=== PATIENT | male | born 2000 | race Two or more races ===

== ENCOUNTER → 2023-01-22 10:41 | Outpatient (BNVA) | payer SELFPAY | PROVIDERS: Visit Provider Physician Assistant Medical | DX: Z02.79 Encounter for issue of other medical certificate (principal) ==

== ENCOUNTER 2023-09-11 14:45 | Outpatient (REF) | payer OTHER, SELFPAY ==
[2023-09-11 16:18] LABS: MANUAL DIFF FLAG NO
[2023-09-11 16:22] LABS: Basophils Absolute Auto 0.1 X10*3/uL (0.0-0.2); Basophils Percent Auto 0.7 % (0-2); Eosinophils Absolute Auto 0.1 X10*3/uL (0.0-0.4); Eosinophils Percent Auto 1.7 % (0-4); Hematocrit 47.7 % (42.0-52.0); Hemoglobin 16.3 g/dl (14.0-18.0); Imm Gran Abs Auto 0.02 X10*3/uL (0.00-0.03); Imm Gran Pct Auto 0.3 % (0.0-0.4); Lymphocytes Absolute Auto 2.1 X10*3/uL (1.2-4.9); Lymphocytes Percent Auto 29.4 % (20-40); Mean Corpuscular HGB Conc 34.2 g/dl (31.0-36.0); Mean Corpuscular Volume 84.7 fL (80.0-98.0); Mean Platelet Volume 10.2 fL (9.4-12.4); Monocytes Absolute Auto 0.6 X10*3/uL (0.1-1.2); Monocytes Percent Auto 8.2 % (2-11); Neutrophils Absolute Auto 4.3 x10*3/uL (2.0-8.3); Neutrophils Percent Auto 59.7 % (45-73); Platelet Count 316 X10*3/uL (160-400); Red Blood Count 5.63 X10*6/uL (4.60-5.80); Red Cell Distribution Width 12.4 % (11.0-16.0); White Blood Count 7.2 X10*3/uL (4.8-10.8)
[2023-09-11 16:40] LABS: Alanine Aminotransferase 49 U/L (0-40); Albumin Level 4.7 g/dL (3.5-5.0); Alkaline Phosphatase 69 U/L (39-117); Anion Gap 11 (12-20); Aspartate Amino Transferase 25 U/L (5-37); Bilirubin Total 1.1 mg/dL (0.0-1.0); Blood Urea Nitrogen 12 mg/dL (9-16); Calcium 10.2 mg/dL (8.4-10.2); Carbon Dioxide 27 mmol/L (22-29); Chloride 104 mmol/L (96-108); Cholesterol 190 mg/dL (<200); Estimated Glomerular Filt Rate > 60; Glucose Random 81 mg/dL (60-115); HDL Cholesterol 40 mg/dL (>40); LDL Cholesterol Calculated 125 mg/dL (<100); Potassium 3.9 mmol/L (3.3-5.1); Sodium 138 mmol/L (135-145); Total Protein 8.2 g/dL (6.5-8.0); Triglycerides 126 mg/dL (<150)
[2023-09-13 04:34] LABS: Syphilis Screen Nonreactive (Nonreactive)
[2023-09-13 05:05] LABS: HBS Num1 18.63 mIU/mL (0-7.99); HBc Num1 0.08 S/CO (0.00-0.79); HBsAGNum1 0.29 S/CO (0.00-0.99); HIV AB/AG Nonreactive (Nonreactive); HIV Num 1 0.05 S/CO (0.00-0.99); Hepatitis B Core Antibody Nonreactive (Nonreactive); Hepatitis B Surface Antigen Negative (Negative); ~HepC Num1 0.14 S/CO (0.00-0.79); ~Hepatitis B Surface Antibody REACTIVE (Nonreactive); ~Hepatitis C Antibody Nonreactive (Nonreactive)
== END 2023-09-11 14:46 | disposition home or self-care (01) ==
LOC: HO.HHCL 14:45
PROVIDERS: Visit Provider Nurse Practitioner Primary Care
DX: Z00.00 Encounter for general adult medical examination without abnormal findings (principal); Z20.2 Contact with and (suspected) exposure to infections with a predominantly sexual mode of transmission
CPT/HCPCS: 36415; 80053; 80061; 85025; 86704; 86706; 86780; 86803; 87340; 87389

== ENCOUNTER 2023-09-11 21:50 | Emergency (ER) | payer OTHER, SELFPAY ==
--- NOTE | ~2023-09-11 | XR_ITS ---
EXAMINATION: XR CHEST CLINICAL INFORMATION: Aspiration. COMPARISON: None available. TECHNIQUE: 2 views of the chest were obtained. FINDINGS: Normal appearance of the cardiomediastinal silhouette. No focal airspace opacities, pleural effusion or pneumothorax. No acute osseous findings. Visualized upper abdomen is within normal limits. XR/XR chest 2V IMPRESSION: No acute cardiopulmonary findings.
[2023-09-11 22:37] VITALS: BP 116/65; PULSE 78; RESP 16; TEMP 36.6; O2SAT 97; BMI 29.9
[2023-09-11 23:28] LABS: MANUAL DIFF FLAG NO
[2023-09-11 23:32] LABS: Basophils Percent Auto 0.5 % (0-2); Eosinophils Absolute Auto 0.2 X10*3/uL (0.0-0.4); Eosinophils Percent Auto 2.3 % (0-4); Hematocrit 44.3 % (42.0-52.0); Hemoglobin 15.3 g/dl (14.0-18.0); Imm Gran Abs Auto 0.01 X10*3/uL (0.00-0.03); Imm Gran Pct Auto 0.1 % (0.0-0.4); Lymphocytes Absolute Auto 2.6 X10*3/uL (1.2-4.9); Lymphocytes Percent Auto 31.9 % (20-40); Mean Corpuscular HGB Conc 34.5 g/dl (31.0-36.0); Mean Corpuscular Hemoglobin 28.9 pg (27.0-33.0); Mean Corpuscular Volume 83.6 fL (80.0-98.0); Mean Platelet Volume 9.5 fL (9.4-12.4); Monocytes Absolute Auto 0.7 X10*3/uL (0.1-1.2); Monocytes Percent Auto 8.3 % (2-11); Neutrophils Absolute Auto 4.6 x10*3/uL (2.0-8.3); Neutrophils Percent Auto 56.9 % (45-73); Platelet Count 280 X10*3/uL (160-400); Red Cell Distribution Width 12.4 % (11.0-16.0)
[2023-09-11 23:39] LABS: INTERNATIONAL NORM RATIO 0.9 (0.9-1.1); Prothrombin Time 11.4 SEC (11.1-13.3)
[2023-09-11 23:51] LABS: Anion Gap 15 (12-20); Blood Urea Nitrogen 13 mg/dL (9-16); Calcium 10.2 mg/dL (8.4-10.2); Carbon Dioxide 24 mmol/L (22-29); Chloride 106 mmol/L (96-108); Creatinine Clr Calc Pharmacy 146.4; Estimated Glomerular Filt Rate > 60; Glucose Random 87 mg/dL (60-115); Potassium 3.7 mmol/L (3.3-5.1); Sodium 141 mmol/L (135-145)
--- NOTE | 2023-09-12 01:15 | ED_ITS ---
[facility] - General Adult General Chief complaint: General Medical Stated complaint: Inhaled rat poison spray at work, vomiting Time Seen by Provider: 09/12/23 00:48 Source: patient Mode of arrival: ambulatory History of Present Illness HPI narrative: This is a 22-year-old male without significant past medical history, patient denies any smoking history, does not inhale we would and states that today he was helping to spray right poison inside of a business at approximately 20:30 and went into the room without the use of any mask or respirator and experienced 2 episodes of vomiting and describes some mild nasal discomfort initially but at this time he denies any further symptoms. Patient denies any hallucinations or coughing. Related Data Allergies Allergy/AdvReac Type Severity Reaction Status Date / Time No Known Allergies Allergy Verified 09/11/23 22:37 Review of Systems 2 Review of Systems: Pertinent positives and negatives as stated in [facility] Past Medical History Source: nursing notes reviewed Onset Date is defined in the Problem List Problems that require an onset date and time if occurred within 24 hrs of arrival to the ED Aortic Dissection and Rupture; Neurologic impairment; Cardiopulmonary Arrest; Endotracheal Intubation; Insertion or Replacement of Mechanical Circulatory Assist Device Social History Social History Advance Directives: No Advance Directives Information Provided: Yes Physical Exam ED Vital Signs: Vital Signs - 24 hr 09/11/23 22:37 Temperature 97.9 F Pulse Rate 78 Respiratory Rate 16 Blood Pressure 116/65 Pulse Oximetry 97 Oxygen Delivery Method Room Air BMI result Body Mass Index 29.9 VITAL SIGNS: Reviewed. GENERAL: Well developed, well nourished, in no acute distress. HEAD: Normocephalic/atraumatic EYES: PERRLA, EOMI EARS: Ext canals without abnormality NOSE: Nares patent bilateral OROPHARYNX: no oral lesions noted, posterior pharynx clear and non-erythematous without noted tonsillar enlargement/erythema/exudates NECK: Supple, no adenopathy LUNGS: No stridor, Normal breath sounds. No adventitious sounds or accessory muscle use. SpO2<97> CARDIOVASCULAR: Regular rate and rhythm without noted murmurs ABDOMEN: Soft, non-tender, non-distended with bowel sounds. MUSCULOSKELETAL: No tenderness, deformities, or effusions noted on gross inspection. EXTREMITIES: No cyanosis, clubbing or edema. SKIN: Inspection of the skin reveals no rashes NEUROLOGIC: Alert and oriented x 4. Strength and sensation to light touch were grossly intact x 4. Medical Decision Making Medical Decision Making [facility] Narrative: 22-year-old male with history and clinical presentation of noxious inhalation of rat poison. No immediate evidence of pneumothorax or pulmonary edema at the time of my interview patient had no further symptoms. I reviewed all investigations and hematologic indices are grossly within normal limits and there are no noted derangements. Coagulation studies are within normal limits. Chemistry indices are grossly within normal limits without evidence of TIMMY or electrolyte derangements. Chest x-ray without evidence of infiltrates or venous congestion and otherwise my interpretation is in agreement with radiology's impression. Differential Diagnosis Differential Diagnoses: The differential diagnosis associated with the presentation includes Please see the discussion above Admission/Observation Consideration of admission/observation: Escalation of care including admission/observation considered Please see the discussion above Lab Data [facility] Lab Attestation statement: I reviewed the patient's lab results. Please see the discussion above 09/11/23 23:25 09/11/23 23:25 Labs: Lab Results 09/11/23 Range/Units 23:25 WBC 8.0 (4.8-10.8) X10*3/uL RBC 5.30 (4.60-5.80) X10*6/uL Hgb 15.3 (14.0-18.0) g/dl Hct 44.3 (42.0-52.0) % MCV 83.6 (80.0-98.0) fL MCH 28.9 (27.0-33.0) pg MCHC 34.5 (31.0-36.0) g/dl RDW 12.4 (11.0-16.0) % Plt Count 280 (160-400) X10*3/uL MPV 9.5 (9.4-12.4) fL Immature Gran % (Auto) 0.1 (0.0-0.4) % Neut % (Auto) 56.9 (45-73) % Lymph % (Auto) 31.9 (20-40) % [place] % (Auto) 8.3 (2-11) % Eos % (Auto) 2.3 (0-4) % Baso % (Auto) 0.5 (0-2) % Lymph # (Auto) 2.6 (1.2-4.9) X10*3/uL [place] # (Auto) 0.7 (0.1-1.2) X10*3/uL Eos # (Auto) 0.2 (0.0-0.4) X10*3/uL Baso # (Auto) 0.0 (0.0-0.2) X10*3/uL Abs Immat Gran (auto) 0.01 (0.00-0.03) X10*3/uL Absolute Neuts (auto) 4.6 (2.0-8.3) x10*3/uL Absolute Nucleated RBC 0.000 (0.0-0.012) X10*3/uL Nucleated RBC % (auto) 0.0 (0.0-0.2) /100WBC PT 11.4 (11.1-13.3) SEC INR 0.9 (0.9-1.1) Sodium 141 (135-145) mmol/L Potassium 3.7 (3.3-5.1) mmol/L Chloride 106 (96-108) mmol/L Carbon Dioxide 24 (22-29) mmol/L Anion Gap 15 (12-20) BUN 13 (9-16) mg/dL Creatinine 0.87 (0.5-1.4) mg/dL Estim Creat Clear Calc 146.4 Estimated GFR > 60 Random Glucose 87 (60-115) mg/dL Calcium 10.2 (8.4-10.2) mg/dL Radiology Impression Discussion of test interpretation with radiology: I have reviewed the radiologist's reading. Radiologist Impression: Please see the discussion above External Record Review External record reviewed: Outpatient record and Prior outpatient labs Discharge Plan Discharge Clinical Impression: Inhalation injury Patient Disposition: Home, Self-Care Instructions: Smoke Inhalation (ED) Additional Instructions: The closest I could find is smoke inhalation for information. Bottom line is if you have any worsening of shortness of breath please return to the emergency room
--- NOTE | 2023-09-12 01:40 | PC.NURSE ---
pt left prior to formal discharge. unable to obtain final set of vs.
== END 2023-09-12 02:03 | disposition home or self-care (01) ==
PROVIDERS: Emergency Medicine; Emergency Provider Student in an Organized Health Care Education/Training Program
DX: Z04.2 Encounter for examination and observation following work accident (principal); T60.4X1A Toxic effect of rodenticides, accidental (unintentional), initial encounter; R11.10 Vomiting, unspecified; J34.89 Other specified disorders of nose and nasal sinuses; Y92.9 Unspecified place or not applicable
CPT/HCPCS: 36415; 71046; 80048; 85025; 85610; 99283; 99284

== ENCOUNTER 2023-09-14 11:18 | Outpatient (REF) | payer OTHER, SELFPAY | END 2023-09-14 11:19 | disposition home or self-care (01) | LOC: HO.HHCLNP 11:18 | PROVIDERS: Visit Provider Nurse Practitioner Primary Care | DX: R12 Heartburn (principal) | CPT/HCPCS: 87338 ==

== ENCOUNTER 2023-09-26 22:20 | Emergency (ER) | payer OTHER, SELFPAY ==
--- NOTE | ~2023-09-26 | CT_ITS ---
EXAMINATION: CT HEAD WITHOUT CONTRAST CLINICAL INFORMATION: Altered mental status COMPARISON: None available. TECHNIQUE: Contiguous axial imaging was performed from the skull base to vertex without intravenous administration of contrast. This CT examination was performed using dose optimization techniques as appropriate, variously including the following: *Automated exposure control *Adjustment of mA and/or kV according to patient size (this includes techniques or standardized protocols for targeted exams where dose is matched to indication/reason for exam; i.e. extremities or head) *Use of iterative reconstruction technique DLP: 1759 mGy-cm FINDINGS: There is no evidence of acute intracranial hemorrhage or territorial infarction. No abnormal mass-effect or midline shift is seen. Luis to white matter differentiation is well preserved. No extra-axial fluid collections are identified. The ventricles are normal in size. There is suspected cavum veli interpositi, with enlarged CSF density space between the atria of the lateral ventricles. The osseous structures and soft tissues are normal. The mastoid air cells and visualized portions of the paranasal sinuses are well-aerated. CT/CT head/brain wo IV con IMPRESSION: No acute intracranial pathology.
--- NOTE | ~2023-09-26 | XR_ITS ---
EXAMINATION: XR CHEST CLINICAL INFORMATION: Chest pain COMPARISON: 09/11/2023 TECHNIQUE: Frontal view of the chest was obtained. FINDINGS: The lungs are hypoinflated which limits evaluation. No focal consolidation is seen. No evidence of pneumothorax, pleural effusion, or pulmonary edema. Cardiac silhouette appears mildly prominent and may be accentuated by low lung volumes. No acute osseous findings are seen. XR/XR chest 1V IMPRESSION: Low lung volumes without acute findings.
--- NOTE | 2023-09-26 22:26 | ED_ITS ---
HPI - Overdose General Chief Complaint: Overdose Stated Complaint: Overdose on drugs and alc. Time Seen by Provider: 09/26/23 22:22 Source: EMS Mode of arrival: EMS Limitations: other History of Present Illness HPI Narrative: patient comes to the emergency room for an overdose. According to EMS, the patient's family/friends called 911 because he was unresponsive. According to bystanders, patient was celebrating his birthday which is tomorrow. Seems that patient was drinking alcohol. According to bystanders he was not using any drugs. However, when EMS arrived, patient received 4 mg intranasal of Narcan and responded well. Additionally, patient needed 2 mg IV. On arrival to the ED, patient is awake and alert, unwilling to talk Related Data Allergies Allergy/AdvReac Type Severity Reaction Status Date / Time No Known Allergies Allergy Verified 09/26/23 23:08 Review of Systems 2 Review of Systems: Yes Unobtainable due to mental condition and Other PMFSH Past Medical History Medical History Overdose Polysubstance abuse Social History Social History (System 09/14/23 @ 15:10 by Mesha Javier) Advance Directives: No Advance Directives Information Provided: No Physical Exam 2 Vital Signs: Vital Signs: Last Vital Signs Temp 97.6 F 09/27/23 01:35 Pulse 84 09/27/23 01:35 Resp 16 09/27/23 01:35 BP 122/65 09/27/23 01:35 Pulse Ox 99 09/27/23 01:35 O2 Del Method Room Air 09/27/23 01:35 BMI result Body Mass Index 29.4 Const: Other: Appearance: Alert. unwilling to talk, No acute distress. Eyes: Pupils equal, round and reactive to light. ENT: Pharynx normal. Neck: Normal inspection. Neck supple. No lymph nodes noted. No crepitus CVS: Normal heart rate and rhythm. Pulses normal. Normal S1 and S2 Respiratory: No respiratory distress. Breath sounds normal. No Wheezing. No rales Abdomen: Soft and nontender. No rigidity. No distention. Skin: Skin warm and dry. Normal skin color. Normal skin turgor. Extremities: No lower extremity edema. No Lacerations. No Rash Neuro: Moving all extremities. No slurred speech. CN 2 through 12 grossly intact Psych: calm, cooperative, unwilling to talk Course Course Course Narrative: - all of patient's labs pending - when patient becomes more sober, we will reassess for SI HI Medications Administered Discontinued Medications Generic Name Dose Route Start Last Admin Trade Name Sunita PRN Reason Stop Dose Admin Sodium Chloride 1,000 mls @ 999 mls/hr 09/27/23 00:31 09/27/23 00:47 Ns IVCONT 09/27/23 01:31 999 mls/hr .Q1H1M ONE Administration Medical Decision Making Medical Decision Making [facility] Narrative: -my interpretation of labs: Normal hematology, normal chemistry, lactic acid 2.9 likely secondary to alcohol intoxication, alcohol level 161, no drugs in urine toxicology. -my interpretation of head CT: No intracranial bleed -patient's at bedside, patient's states that the patient was drinking a lot of alcohol, started vomiting and then passed out. -it is likely the patient had vasovagal syncope versus secondary to alcohol intoxication -patient is not short of breath, not tachycardic, no risks for PE, wells PE criteria score is 0 for this patient -troponin 2. Pending at 02:30 -I discussed the patient with my colleague Dr. Del Rosario Differential Diagnosis Differential Diagnoses: The differential diagnosis associated with the presentation includes (Alcohol intoxication, drug overdose, ACS) Admission/Observation Consideration of admission/observation: Escalation of care including admission/observation considered (Given patient's presentation, admission was considered on arrival) Lab Data [facility] Lab Attestation statement: I reviewed the patient's lab results. 09/26/23 22:29 09/26/23 23:31 Labs: Lab Results 09/26/23 09/26/23 09/26/23 Range/Units 22:29 23:14 23:31 WBC 7.9 (4.8-10.8) X10*3/uL RBC 5.32 (4.60-5.80) X10*6/uL Hgb 15.8 (14.0-18.0) g/dl Hct 44.2 (42.0-52.0) % MCV 83.1 (80.0-98.0) fL MCH 29.7 (27.0-33.0) pg MCHC 35.7 (31.0-36.0) g/dl RDW 12.1 (11.0-16.0) % Plt Count 275 (160-400) X10*3/uL MPV 9.4 (9.4-12.4) fL Immature Gran % (Auto) 0.4 (0.0-0.4) % Neut % (Auto) 65.0 (45-73) % Lymph % (Auto) 28.9 (20-40) % [place] % (Auto) 4.3 (2-11) % Eos % (Auto) 0.9 (0-4) % Baso % (Auto) 0.5 (0-2) % Lymph # (Auto) 2.3 (1.2-4.9) X10*3/uL [place] # (Auto) 0.3 (0.1-1.2) X10*3/uL Eos # (Auto) 0.1 (0.0-0.4) X10*3/uL Baso # (Auto) 0.0 (0.0-0.2) X10*3/uL Abs Immat Gran (auto) 0.03 (0.00-0.03) X10*3/uL Absolute Neuts (auto) 5.1 (2.0-8.3) x10*3/uL Absolute Nucleated RBC 0.000 (0.0-0.012) X10*3/uL Nucleated RBC % (auto) 0.0 (0.0-0.2) /100WBC Sodium 143 (135-145) mmol/L Potassium 3.7 (3.3-5.1) mmol/L Chloride 107 (96-108) mmol/L Carbon Dioxide 23 (22-29) mmol/L Anion Gap 17 (12-20) BUN 10 (9-16) mg/dL Creatinine 0.98 (0.5-1.4) mg/dL Estim Creat Clear Calc 133.1 Estimated GFR > 60 POC Glucose 115 (60-115) mg/dL Random Glucose 109 (60-115) mg/dL Lactic Acid 2.9 H* (0.5-2.0) mmol/L Calcium 9.2 D (8.4-10.2) mg/dL Total Bilirubin 0.6 (0.0-1.0) mg/dL Direct Bilirubin 0.2 (0.0-0.5) mg/dL AST 22 (5-37) U/L ALT 26 (0-40) U/L Alkaline Phosphatase 64 (39-117) U/L Troponin I High Sens < 2.7 < 2.7 (<3.5-35.0) ng/L Total Protein 8.3 H (6.5-8.0) g/dL Albumin 4.7 (3.5-5.0) g/dL Urine Opiates Screen Not Detected (Not Detect) Urine Fentanyl Screen Not Detected (Not Detect) Ur Barbiturates Screen Not Detected (Not Detect) Ur Phencyclidine Scrn Not Detected (Not Detect) Ur Amphetamines Screen Not Detected (Not Detect) U Benzodiazepines Scrn Not Detected (Not Detect) Urine Cocaine Screen Not Detected (Not Detect) U Marijuana (THC) Screen Not Detected (Not Detect) Ethyl Alcohol 161 mg/dL Independent Interpretation I performed an independent interpretation of an: CT Scan Radiology Impression Discussion of test interpretation with radiology: I have reviewed the radiologist's reading. Radiologist Impression: There is no evidence of acute intracranial hemorrhage or territorial infarction. No abnormal mass-effect or midline shift is seen. Luis to white matter differentiation is well preserved. No extra-axial fluid collections are identified. The ventricles are normal in size. There is suspected cavum veli interpositi, with enlarged CSF density space between the atria of the lateral ventricles. The osseous structures and soft tissues are normal. The mastoid air cells and visualized portions of the paranasal sinuses are well-aerated. CT/CT head/brain wo IV con IMPRESSION: No acute intracranial pathology. Discharge Plan Discharge Clinical Impression: Alcohol intoxication Patient Disposition: Still a Patient
--- NOTE | 2023-09-26 22:27 | ECG_ITS ---
Test Reason : overdose Blood Pressure : / mmHG Vent. Rate : 076 BPM Atrial Rate : 076 BPM P-R Int : 160 ms QRS Dur : 100 ms QT Int : 388 ms P-R-T Axes : 005 042 013 degrees QTc Int : 436 ms Normal sinus rhythm Normal ECG No previous ECGs available Referred By: Estelita Muro Electronically Signed By:Scout Roca
[2023-09-26 22:40] LABS: MANUAL DIFF FLAG NO
[2023-09-26 22:44] LABS: Basophils Percent Auto 0.5 % (0-2); Eosinophils Absolute Auto 0.1 X10*3/uL (0.0-0.4); Eosinophils Percent Auto 0.9 % (0-4); Hematocrit 44.2 % (42.0-52.0); Hemoglobin 15.8 g/dl (14.0-18.0); Imm Gran Abs Auto 0.03 X10*3/uL (0.00-0.03); Imm Gran Pct Auto 0.4 % (0.0-0.4); Lymphocytes Absolute Auto 2.3 X10*3/uL (1.2-4.9); Lymphocytes Percent Auto 28.9 % (20-40); Mean Corpuscular HGB Conc 35.7 g/dl (31.0-36.0); Mean Corpuscular Hemoglobin 29.7 pg (27.0-33.0); Mean Corpuscular Volume 83.1 fL (80.0-98.0); Mean Platelet Volume 9.4 fL (9.4-12.4); Monocytes Absolute Auto 0.3 X10*3/uL (0.1-1.2); Monocytes Percent Auto 4.3 % (2-11); Neutrophils Absolute Auto 5.1 x10*3/uL (2.0-8.3); Platelet Count 275 X10*3/uL (160-400); Red Blood Count 5.32 X10*6/uL (4.60-5.80); Red Cell Distribution Width 12.1 % (11.0-16.0); White Blood Count 7.9 X10*3/uL (4.8-10.8)
[2023-09-26 22:58] LABS: Alanine Aminotransferase 26 U/L (0-40); Albumin Level 4.7 g/dL (3.5-5.0); Alkaline Phosphatase 64 U/L (39-117); Aspartate Amino Transferase 22 U/L (5-37); Bilirubin Direct 0.2 mg/dL (0.0-0.5); Bilirubin Total 0.6 mg/dL (0.0-1.0); Ethanol 161 mg/dL; Total Protein 8.3 g/dL (6.5-8.0)
[2023-09-26 23:06] LABS: Troponin-I High Sensitivity < 2.7 ng/L (<3.5-35.0)
[2023-09-26 23:08] VITALS: BP 104/62; BP 143/77; PULSE 74; PULSE 75; RESP 18; TEMP 36.6; O2SAT 100; BMI 29.4
[2023-09-26 23:16] VITALS: BP 134/90; PULSE 81; RESP 20; TEMP 36.4; O2SAT 90
[2023-09-26 23:37] LABS: Glucose, Whole Blood 115 mg/dL (60-115)
[2023-09-26 23:43] VITALS: BP 143/77; PULSE 72; PULSE 75; RESP 17; TEMP 36.6; O2SAT 100; BMI 29.4
[2023-09-26 23:50] LABS: Amphetamine Screen Urine Not Detected (Not Detect); Barbiturates, Urine Not Detected (Not Detect); Benzodiazepines Screen Urine Not Detected (Not Detect); Cannabinoid Screen Urine Not Detected (Not Detect); Cocaine Screen Urine Not Detected (Not Detect); Fentanyl, urine Not Detected (Not Detect); Opiate Screen Urine Not Detected (Not Detect); Phencyclidine Screen Urine Not Detected (Not Detect)
[2023-09-26 23:56] LABS: Anion Gap 17 (12-20); Blood Urea Nitrogen 10 mg/dL (9-16); Calcium 9.2 mg/dL (8.4-10.2); Carbon Dioxide 23 mmol/L (22-29); Chloride 107 mmol/L (96-108); Creatinine Clr Calc Pharmacy 133.1; Estimated Glomerular Filt Rate > 60; Glucose Random 109 mg/dL (60-115); Potassium 3.7 mmol/L (3.3-5.1); Sodium 143 mmol/L (135-145)
[2023-09-27 00:04] LABS: Lactic Acid 2.9 mmol/L (0.5-2.0)
[2023-09-27 00:33] LABS: Troponin-I High Sensitivity < 2.7 ng/L (<3.5-35.0)
[2023-09-27] MEDS: 0.9 % Sodium Chloride 1,000 ML 999 ML IVCONT (00:47)
[2023-09-27 01:35] VITALS: BP 122/65; PULSE 84; RESP 16; TEMP 36.4; O2SAT 99
[2023-09-27 01:36] LABS: Reflex Lactate? Lactic Acid Added
[2023-09-27 02:15] VITALS: BP 128/70; PULSE 77
[2023-09-27 02:16] VITALS: BP 136/80; PULSE 72
[2023-09-27 02:18] VITALS: BP 129/84; PULSE 74
[2023-09-27 02:25] LABS: Prothrombin Time 12.1 SEC (11.1-13.3)
[2023-09-27 02:27] LABS: Partial Thromboplastin Time 28.8 SEC (26.0-36.4)
[2023-09-27 02:37] LABS: ~Lactic Acid-LAB USE ONLY 2.5 mmol/L (0.5-2.0)
[2023-09-27 02:42] LABS: Troponin-I High Sensitivity < 2.7 ng/L (<3.5-35.0)
[2023-09-27 04:00] VITALS: BP 131/69; PULSE 70; RESP 18; TEMP 37.1; O2SAT 100
[2023-09-27 04:16] LABS: Reflex Lactate? 2 Y
== END 2023-09-27 04:32 | disposition home or self-care (01) ==
PROVIDERS: Emergency Medicine; Emergency Provider Emergency Medicine Emergency Medical Services; PCP Nurse Practitioner Primary Care
DX: F10.920 Alcohol use, unspecified with intoxication, uncomplicated (principal); Y90.6 Blood alcohol level of 120-199 mg/100 ml; R41.82 Altered mental status, unspecified; R07.9 Chest pain, unspecified; E87.20 Acidosis, unspecified; R11.2 Nausea with vomiting, unspecified
CPT/HCPCS: 36415; 51701; 70450; 71045; 80048; 80307; 82248; 82947; 83605; 84484; 85025; 85610; 85730; 93005; 99284; 99285

== ENCOUNTER → 2023-09-26 22:27 | Outpatient (BNV) | payer OTHER, SELFPAY | PROVIDERS: Emergency Provider Emergency Medicine Emergency Medical Services; PCP Nurse Practitioner Primary Care; Visit Provider Internal Medicine Cardiovascular Disease | DX: T50.911A Poisoning by multiple unspecified drugs, medicaments and biological substances, accidental (unintentional), initial encounter (principal) | CPT/HCPCS: 93010 ==

== ENCOUNTER 2023-11-21 19:13 | Emergency (ER) | payer OTHER, SELFPAY ==
[2023-11-21 19:17] VITALS: BP 126/74; PULSE 76; RESP 18; TEMP 36.8; O2SAT 98; BMI 29.6
--- NOTE | 2023-11-21 19:37 | ED.SKABFB ---
HPI - Skin/Abscess/Foreign Bdy General Chief complaint: Allergic Reaction Stated complaint: ?Allergic reaction Time Seen by Provider: 11/21/23 19:31 Source: patient and family Mode of arrival: ambulatory Limitations: no limitations History of Present Illness HPI narrative: 23 year old male presents to the ED today for evaluation of facial rash x1 day. He states that after moving furniture at someone's home yesterday, he began to notice itching/ redness to his entire face later that night. He is concerned that the owners of the house may have had a cat however has no known cat allergy. He has been applying topical Benadryl to his face and took one dose of PO benadryl this morning without resolution/improvement. Denies new lotions or detergents however admits to starting Murad facial cleanser containing salicylic acid approximately 1 week ago. He has been using this without issue until rash began yesterday. He only uses this cleanser on his face. Denies new medications or antibiotics over the last few weeks. He states that he only takes a multivitamin daily. Denies rash anywhere else on the body, fever, chills, sob, dyspnea, sore throat/ throat closing sensation, N/V, or abdominal pain. Related Data Previous Rx's Medication Instructions Recorded diphenhydramine HCl 50 mg tablet 50 mg PO Q8H PRN itching #20 tabs 11/21/23 (Benadryl Allergy) prednisone 20 mg tablet 20 mg PO DAILY 5 days #5 tabs 11/21/23 Allergies Allergy/AdvReac Type Severity Reaction Status Date / Time No Known Allergies Allergy Verified 09/26/23 23:08 Review of Systems Review of Systems: Constitutional: No fever, chills, fatigue, night sweats, weight changes ENT/Mouth: No ear pain, hearing loss, nasal congestion, sinus pain, rhinorrhea, sore throat Eyes: No eye pain, swelling, redness, vision changes, discharge Cardio: No chest pain, palpitations, [place], orthopnea, peripheral edema Pulm: No SOB, cough, sputum, wheezing, dyspnea, hemoptysis GI: No nausea, vomiting, hematemesis, abdominal pain, diarrhea, constipation, hematochezia, melena : No irregular bleeding, dysuria, frequency, urgency, hesitancy, hematuria, flank pain, urinary flow changes, urinary incontinence or retention MSK: No back pain, neck pain, joint pain, myalgias Skin: No lesions, +facial redness/itching Neuro: No weakness, numbness, paresthesias, LOC, dizziness, headache Psych: No anxiety/panic, depression, SI/HI, AH/VH All other systems reviewed and are negative. [facility] Past Medical History Attestation statement: The following information was validated with the patient. Source: old records reviewed and nursing notes reviewed Medical History Overdose Polysubstance abuse Social History Social History Alcohol intake: current Alcohol intake frequency: a few times a month Advance Directives: No Advance Directives Information Provided: No Physical Exam Vital Signs: Vital Signs: Last Vital Signs Temp 98.3 F 11/21/23 21:01 Pulse 76 11/21/23 21:01 Resp 18 11/21/23 21:01 BP 126/74 11/21/23 21:01 Pulse Ox 98 11/21/23 21:01 O2 Del Method Room Air 11/21/23 21:01 BMI result Body Mass Index 29.6 vitals wnl, satting 98% on RA. Const: General: cooperative, healthy appearing, comfortable and no acute distress Orientation/consciousness: patient oriented x3 Limitations: no limitations HEENT: Other: + refer to photos below Ears: hearing grossly normal bilaterally, external ears normal, TM's normal bilaterally, EAC's normal, mastoids normal and no periauricular adenopathy Eyes: General: appearance normal, both eyes and all related structures Conjunctivae: conjunctivae normal Sclerae: sclerae normal Pupils: Equal, round and reactive pupils present Neck: Neck: Yes normal visual inspection, Yes full ROM and Yes no lymphadenopathy Resp: Other: + airway patent Effort & Inspection: normal respiratory effort, able to speak in complete sentences and no stridor Auscultation: clear to auscultation bilaterally Cardio: Rate: regular rate Rhythm: regular rhythm GI: Inspection: Yes normal to inspection Palpation (GI): Soft to palpation and nontender Skin: Other: + refer to photos below + erythemaous, raised pustules noted to forehead and maxillar region. dry, pealing skin noted to chin area. no sloughing. no involvement of mucous membranes. spares palms/soles and webbed spaces. nno weeping. no edema or lip/ tongue swelling. Neuro: General: patient oriented x3 Cranial nerves: Yes Equal, round and reactive pupils present Extrem: General: Yes normal to inspection and Yes capillary refill normal Course Course Course Narrative: 2030-- CBC without leukocytosis or left shift. No anemia. H&H stable. Eosinophills wnl > likely non allergic in etiology. ESR and CRP wnl. Chemistry without acute electrolyte abnormality requiring intervention. > no improvement in erythema following benadryl, pepcid, and solumedrol however patient reports improvement in itching. given recent addition of Murad facial cleanser to regimen, likely reaction to salicylic acid. discussed all work up results with patient. advised to discontinue use of topical salicylic acid. advised him to follow up with sales data analyst regarding further treatments. he states that he currently has an appointment with a sales data analyst in a few weeks. will send benadryl and steroids to pharmacy for pruritus. Patient has remained stable throughout ED visit today. Discussed worrisome signs and symptoms and when to return to the ED. All questions answered at this time. Patient is agreeable with disposition and stable for discharge. Medications Administered Discontinued Medications Generic Name Dose Route Start Last Admin Trade Name Jorjeq PRN Reason Stop Dose Admin Diphenhydramine HCl 25 mg 11/21/23 19:37 11/21/23 19:59 Diphenhydramine Hcl 50 Mg/Ml Vial IVPUSH 11/21/23 19:38 25 mg ONCE ONE Administration Famotidine 20 mg 11/21/23 19:45 11/21/23 20:00 Famotidine/Pf 20 Mg/2 Ml Vial IVPUSH 11/21/23 19:46 20 mg ONCE ONE Administration Methylprednisolone Sodium Succinate 125 mg 11/21/23 19:37 11/21/23 19:53 Methylprednisolone Sod Succ 125 Mg/2 Ml Vial IVPUSH 11/21/23 19:38 125 mg ONCE ONE Administration Medical Decision Making Medical Decision Making [facility] Narrative: 23 year old male presents to the ED today for evaluation of facial rash x1 day. Vital signs stable. He is nontoxic appearing and in no acute distress. Please refer to physical exam section for findings. Rash is localized to forehead and bilateral maxillar region. No sloughing. Spares webbed spaces, mucous membranes, palms/soles. No dermatomal pattern. No weeping. no edema or lip/tongue swelling. airway patent. lungs cta b/l. no stridor. Differential diagnosis includes contact dermatitis, allergic dermatitis, acne, allergic reaction, medication reaction. Unlikely lyme, SJS/TEN, scabies, HSV, zoster, angioedema, respiratory distress/ airway compromise. Plan for basic labs, IV meds, and re-evaluation. Differential Diagnosis Differential Diagnoses: The differential diagnosis associated with the presentation includes as above. Admission/Observation not indicated Lab Data MDM Lab Attestation statement: I reviewed the patient's lab results. as above. 11/21/23 19:50 11/21/23 19:50 Labs: Lab Results 11/21/23 Range/Units 19:50 WBC 5.9 (4.8-10.8) X10*3/uL RBC 5.28 (4.60-5.80) X10*6/uL Hgb 15.6 (14.0-18.0) g/dl Hct 44.9 (42.0-52.0) % MCV 85.0 (80.0-98.0) fL MCH 29.5 (27.0-33.0) pg MCHC 34.7 (31.0-36.0) g/dl RDW 12.4 (11.0-16.0) % Plt Count 261 (160-400) X10*3/uL MPV 9.2 L (9.4-12.4) fL Immature Gran % (Auto) 0.0 (0.0-0.4) % Neut % (Auto) 50.7 (45-73) % Lymph % (Auto) 34.7 (20-40) % Boundary % (Auto) 10.5 (2-11) % Eos % (Auto) 3.6 (0-4) % Baso % (Auto) 0.5 (0-2) % Lymph # (Auto) 2.0 (1.2-4.9) X10*3/uL Boundary # (Auto) 0.6 (0.1-1.2) X10*3/uL Eos # (Auto) 0.2 (0.0-0.4) X10*3/uL Baso # (Auto) 0.0 (0.0-0.2) X10*3/uL Abs Immat Gran (auto) 0.00 (0.00-0.03) X10*3/uL Absolute Neuts (auto) 3.0 (2.0-8.3) x10*3/uL Absolute Nucleated RBC 0.000 (0.0-0.012) X10*3/uL Nucleated RBC % (auto) 0.0 (0.0-0.2) /100WBC ESR 2 (0-15) MM/HR Sodium 145 (135-145) mmol/L Potassium 4.0 (3.3-5.1) mmol/L Chloride 107 (96-108) mmol/L Carbon Dioxide 29 (22-29) mmol/L Anion Gap 13 (12-20) BUN 14 (9-16) mg/dL Creatinine 0.85 (0.5-1.4) mg/dL Estim Creat Clear Calc 148.0 Estimated GFR > 60 Random Glucose 94 (60-115) mg/dL Calcium 9.8 D (8.4-10.2) mg/dL Magnesium 2.2 (1.6-2.6) mg/dL Total Bilirubin 0.7 (0.0-1.0) mg/dL AST 27 (5-37) U/L ALT 51 H (0-40) U/L Alkaline Phosphatase 70 (39-117) U/L C-Reactive Protein 0.12 (< or = 0.50) mg/dL Total Protein 7.6 (6.5-8.0) g/dL Albumin 4.4 (3.5-5.0) g/dL Lipase 25 (8-78) U/L External Record Review External record reviewed: Inpatient record Prescription Management I considered prescription management with: Other (benadryl, prednisone) Social Determinants Patient?s care significantly limited by Social Determinants of Health including: Other Social Determinant of Health Critical Care Time Critical Care Time Critical Care Time: Yes Total Critical Care Time: 41 Attestation: Critical care time in the amount of 41 minutes has been provided to the patient in terms of direct patient care, frequent reevaluation, review and interpretation of medical data and results, and management of potentially life-threatening conditions. This is all outside of any medical procedures. Discharge Plan Discharge Clinical Impression: Contact dermatitis Patient Disposition: Home, Self-Care Instructions: Contact Dermatitis (ED) Additional Instructions: Your labwork today is reassuring. I believe this reaction may be due to your Murad cleanser. Salicylic acid can cause itching/ burning/ dryness/ redness to skin which may last anywhere from 5-7 days. Please avoid using this as it can worsen symptoms. Avoid any new cleansers/lotions/ointments. Prednisone is a steroid that has been sent to your pharmacy. Beginning tomorrow, take this for 5 days as prescribed. Benadryl has been sent to your pharmacy. Take this as needed for itching. Please follow up with PCP as needed. I have provided you with a referral to a sales data analyst. If symptoms persists, you may reach out to them to establish care. You have also been provided with a referral to an electronic musical instrument repairer. You may call them to may an appointment. If symptoms persist or worsen, please return to the ED. In the case of an emergency, call 911. Prescriptions: New prednisone 20 mg tablet 20 mg PO DAILY 5 Days Qty: 5 0RF Benadryl Allergy 50 mg tablet 50 mg PO Q8H PRN (Reason: itching) Qty: 20 0RF Referrals: Dre Mason MD [Physician] - Connie Ellis PA-C [Physician House Builder] - Interventions: ED Discharge Assessment Last Done: 11/21/23 21:01 Discharge Date/Time: 11/21/23 21:01
[2023-11-21 19:52] LABS: MANUAL DIFF FLAG NO
[2023-11-21] MEDS: methylPREDNISolone Sod Succ 125 MG/2 ML VIAL IVPUSH (19:53)
[2023-11-21 19:54] LABS: Basophils Percent Auto 0.5 % (0-2); Eosinophils Absolute Auto 0.2 X10*3/uL (0.0-0.4); Eosinophils Percent Auto 3.6 % (0-4); Hematocrit 44.9 % (42.0-52.0); Hemoglobin 15.6 g/dl (14.0-18.0); Lymphocytes Percent Auto 34.7 % (20-40); Mean Corpuscular HGB Conc 34.7 g/dl (31.0-36.0); Mean Corpuscular Hemoglobin 29.5 pg (27.0-33.0); Mean Platelet Volume 9.2 fL (9.4-12.4); Monocytes Absolute Auto 0.6 X10*3/uL (0.1-1.2); Monocytes Percent Auto 10.5 % (2-11); Neutrophils Percent Auto 50.7 % (45-73); Platelet Count 261 X10*3/uL (160-400); Red Blood Count 5.28 X10*6/uL (4.60-5.80); Red Cell Distribution Width 12.4 % (11.0-16.0); White Blood Count 5.9 X10*3/uL (4.8-10.8)
[2023-11-21] MEDS: diphenhydrAMINE HCL 50 MG/ML VIAL 25 MG IVPUSH (19:59)
[2023-11-21] MEDS: Famotidine/PF 20 MG/2 ML VIAL IVPUSH (20:00)
[2023-11-21 20:09] LABS: Alanine Aminotransferase 51 U/L (0-40); Albumin Level 4.4 g/dL (3.5-5.0); Alkaline Phosphatase 70 U/L (39-117); Anion Gap 13 (12-20); Aspartate Amino Transferase 27 U/L (5-37); Bilirubin Total 0.7 mg/dL (0.0-1.0); Blood Urea Nitrogen 14 mg/dL (9-16); C Reactive Protein 0.12 mg/dL (< or = 0.50); Calcium 9.8 mg/dL (8.4-10.2); Carbon Dioxide 29 mmol/L (22-29); Chloride 107 mmol/L (96-108); Estimated Glomerular Filt Rate > 60; Glucose Random 94 mg/dL (60-115); Lipase 25 U/L (8-78); Magnesium 2.2 mg/dL (1.6-2.6); Sodium 145 mmol/L (135-145); Total Protein 7.6 g/dL (6.5-8.0)
[2023-11-21 20:31] LABS: Erythrocyte Sedimentation Rate 2 MM/HR (0-15)
[2023-11-21 21:01] VITALS: BP 126/74; PULSE 76; RESP 18; TEMP 36.8; O2SAT 98
== END 2023-11-21 21:01 | disposition home or self-care (01) ==
PROVIDERS: Physician Assistant Medical; Emergency Provider Emergency Medicine; PCP Nurse Practitioner Primary Care
DX: L25.9 Unspecified contact dermatitis, unspecified cause (principal); Z79.899 Other long term (current) drug therapy
CPT/HCPCS: 36415; 80053; 83690; 83735; 85025; 85652; 86140; 96374; 96375; 99282; 99284; J1200; J2930

== ENCOUNTER 2024-07-07 15:59 | Outpatient (REF) | payer SELFPAY ==
[2024-07-07 16:14] LABS: Appearance Urine Clear; Color Urine Yellow; Glucose Urine UA Negative (Negative); Leukocyte Esterase Urine Negative (Negative); Nitrite Urine Negative (Negative); Urine Blood Negative (Negative); Urine Ketones Negative (Negative); Urine Protein Negative (Neg-Trace)
[2024-07-07 16:18] LABS: Bacteria Urine None Seen (None Seen); Hyaline Casts Urine 0-2 /LPF (0-2); RBC Urine 0-2 /HPF (0-2); Squamous Epithelial Cell Urine 0-2 /HPF (0-2); WBC Urine 0-5 /HPF (0-5)
[2024-07-08 05:21] LABS: CT PCR NOT DETECTED (Not Detect.); NG PCR NOT DETECTED (Not Detect.)
== END 2024-07-07 16:00 | disposition home or self-care (01) ==
LOC: HO.LNP 15:59
PROVIDERS: Visit Provider Nurse Practitioner Primary Care
DX: R30.0 Dysuria (principal)
CPT/HCPCS: 81001; 87491; 87591